=== PATIENT | female | born 1965 | race Two or more races ===

== ENCOUNTER 2020-07-21 09:23 | Emergency (ER) | payer OTHER ==
[~2020-07-21] VITALS: Ht 162.6 cm; Wt 76.2 kg
[2020-07-21] MEDS ORDERED: LEVOTHYROXINE88 MCG PO (10:17)
== END 2020-07-21 14:54 | disposition home or self-care (01) ==
LOC: ER 09:23
DX: R06.02 Shortness of breath (principal); R07.89 Other chest pain; F41.8 Other specified anxiety disorders; Z03.818 Encounter for observation for suspected exposure to other biological agents ruled out

== ENCOUNTER 2024-04-09 17:29 | Emergency (ER) | payer OTHER ==
[~2024-04-09] VITALS: Ht 162.6 cm; Wt 80.7 kg
[~2024-04-09 17:29] MED LIST: LEVOTHYROXINE88 MCG PO
[2024-04-09] MEDS ORDERED: KETOROLAC TROMETHAMINE 60 MG VIAL IM ONE (18:15)
[2024-04-09 18:48] LABS: HEMATOCRIT 38.1 % (36.0-45.00); HEMOGLOBIN 12.9 g/dL (12.0-15.00); MEAN CELL VOLUME 80.9 fL (80.00-100.00); MEAN CORPUSCULAR HEMOGLOBIN 27.5 pg (27.00-32.0); PLATELET COUNT 300 K/uL (150-450); RED BLOOD COUNT 4.71 M/uL (4.00-6.00); RED CELL DISTRIBUTION WIDTH 14.8 % (11.5-14.5)
[2024-04-09 19:12] LABS: ALT/SGPT 47 U/L (12-78); AST/SGOT 22 U/L (15-37); LDH 156 U/L (84-246); PHOSPHOKINASE CREATININE 65 U/L (26-192)
== END 2024-04-09 19:59 | disposition home or self-care (01) ==
LOC: ER 17:30
PROVIDERS: General Practice
DX: R07.89 Other chest pain (principal); Z88.0 Allergy status to penicillin